=== PATIENT | female | born 1995 | race African-American/Black ===

== ENCOUNTER 2016-08-28 21:43 | Emergency (ER) | payer MEDICAID ==
[~2016-08-28] VITALS: Ht 172.7 cm; Wt 107.0 kg
[2016-08-28] MEDS ORDERED: TRAZODONE HCL100 MG ORAL (21:56)
[2016-08-28] MEDS ORDERED: DEPAKOTE250 MG PO (21:56)
[2016-08-28] MEDS ORDERED: KEFLEX500 MG ORAL (22:18)
[2016-08-28] MEDS ORDERED: IBUPROFEN600 MG ORAL (22:18)
[2016-08-28 22:27] VITALS: BP 130/82
--- NOTE | 2016-08-28 23:52 | Emergency Room Report ---
History of Present Illness General Chief Complaint: Skin Rash/Abscess Source: Patient Present Illness HPI Patient presents with complaints of redness and discomfort in the left axilla Ongoing for over the past 10 days Denies any fevers Denies any chills Patient reports that she was getting norco for the pain which was helping her Denies any discharge Denies any fall or trauma pain is 8/10 worse with touch Allergies: Coded Allergies: GUAIFENESIN (Verified Allergy, Unknown, 08/28/16) Patient History Past Medical History: see triage record Pertinent Family History: none Last Menstrual Period: 2013 Reviewed Nursing Documentation: PMH: Agreed, PSxH: Agreed Nursing Documentation-PMH History Of Psychiatric Problem: Yes - BIPOLAR,DEPRESSION Review of Systems All Other Systems: negative except mentioned in HPI Physical Exam Vital Signs Date Time Temp Pulse Resp B/P Pulse Ox O2 Delivery O2 Flow Rate FiO2 08/28/16 21:49 98.2 82 18 105/66 96 Room Air Sp02 EP Interpretation: reviewed, normal General Appearance: well appearing, no apparent distress Head: normocephalic, atraumatic Eyes: bilateral eye EOMI, bilateral eye PERRL ENT: hearing grossly normal, normal pharynx Neck: full range of motion, supple Respiratory: lungs clear, normal breath sounds Cardiovascular #1: regular rate, rhythm Musculoskeletal: normal inspection Neurologic: alert, oriented x3, responsive Skin: other - Small area of what appears to be likely folliculitis the left mid axilla, approximately 1 x 1 cm, no obvious fluctuance, does not appear to be a lymph node Medical Decision Making Diagnostic Impression: Primary Impression: folliculitis ER Course The area in question at this time appears fairly early, no obvious abscess Patient will be treated conservatively with oral antibiotics Last Vital Signs Date Time Temp Pulse Resp B/P Pulse Ox O2 Delivery O2 Flow Rate FiO2 08/28/16 22:27 77 16 130/82 98 Room Air 08/28/16 22:27 98.0 Status: unchanged Disposition: HOME, SELF-CARE Condition: Stable Scripts Ibuprofen* (MOTRIN*) 600 Mg Tablet 600 MG ORAL Q8H Y for For Pain, #20 TAB 0 Refills Prov: KEYSHA MESSINA.Kristyn 08/28/16 Cephalexin* (KEFLEX*) 500 Mg Capsule 500 MG ORAL Q6H, #28 CAP 0 Refills Prov: KEYSHA MESSINA D.O. 08/28/16 Referrals: NOT CHOSEN IPA/MD,REFERRING (PCP) Patient Instructions: Folliculitis Additional Instructions: Patient is provided with the discharge instructions notified to follow up with primary doctor in the next 2-3 days otherwise return to the er with any worsening symptoms. Please note that this report is being documented using DRAGON technology. This can lead to erroneous entry secondary to incorrect interpretation by the dictating instrument. KEYSHA MESSINA D.O. Aug 28, 2016 23:52
== END 2016-08-28 22:31 | disposition home or self-care (01) ==
LOC: EMR 22:30
DX: L73.9 Follicular disorder, unspecified (principal); L02.818 Cutaneous abscess of other sites
CPT/HCPCS: 99284

== ENCOUNTER 2016-09-03 19:22 | Emergency (ER) | payer MEDICAID ==
[~2016-09-03] VITALS: Ht 170.2 cm; Wt 108.9 kg
[~2016-09-03 19:22] MED LIST: DEPAKOTE250 MG PO; IBUPROFEN600 MG ORAL; KEFLEX500 MG ORAL; TRAZODONE HCL100 MG ORAL
[2016-09-03 20:08] LABS: APPEARANCE,URINE CLEAR; KETONES,URINE NEGATIVE (NEGATIVE); LEUKOCYTE ESTERASE ,URINE 3+ (NEGATIVE); NITRITE,URINE NEGATIVE (NEGATIVE); PH,URINE 5 (4.5-8.0); PROTEIN,URINE NEGATIVE (NEGATIVE); UROBILINOGEN,URINE NORMAL MG/DL (0.0-1.0)
[2016-09-03 20:10] VITALS: BP 101/59
[2016-09-03 20:13] LABS: BASOPHILS % (AUTO) 1.4 % (0.0-2.0); EOSINOPHILS % (AUTO) 6.5 % (0.0-3.0); LYMPHOCYTES % (AUTO) 39.9 % (20.0-45.0); MEAN CORPUSCULAR HEMOGLOBIN 30.9 PG (27.0-31.0); MEAN CORPUSCULAR HGB CONC 33.3 G/DL (32.0-36.0); MEAN CORPUSCULAR VOLUME 93 FL (80-99); MEAN PLATELET VOLUME 5.9 FL (6.5-10.1); MONOCYTES % (AUTO) 7.8 % (1.0-10.0); NEUTROPHILS % (AUTO) 44.4 % (45.0-75.0); PLATELET COUNT 296 K/UL (150-450); RED BLOOD COUNT 4.05 M/UL (4.20-5.40); RED CELL DISTRIBUTION WIDTH 11.4 % (11.6-14.8); WHITE BLOOD COUNT 6.2 K/UL (4.8-10.8)
[2016-09-03 20:20] LABS: PROTHROMBIN TIME 10.2 SEC (9.30-11.50)
[2016-09-03 20:23] VITALS: BP 92/57
[2016-09-03 20:23] LABS: ALANINE AMINOTRANSFERASE 24 U/L (3-33); ALBUMIN/GLOBULIN RATIO 1.2 (1.0-2.7); ANION GAP 16 (5-15); ASPARTATE AMINO TRANSFERASE 19 U/L (5-40); CALCIUM 9.4 mg/dL (8.6-10.2); CARBON DIOXIDE 26 mEQ/L (20-30); CHLORIDE 97 mEQ/L (98-107); GLOMERULAR FILTRATION RATE > 60 mL/min (>60); HEMOLYSIS 3; LIPASE 31 U/L (< 60); POTASSIUM 3.9 mEQ/L (3.4-4.9); SODIUM 139 mEQ/L (135-145); TOTAL PROTEIN 7.5 g/dL (6.6-8.7); TROPONIN I < 0.30 ng/mL (<=0.30)
[2016-09-03 20:24] LABS: BACTERIA,URINE MODERATE /HPF; SQUAMOUS EPITHELIAL CELL,UR MANY /LPF (NONE/OCC); WBC,URINE 15-20 /HPF (0 - 2)
[2016-09-03 20:25] LABS: TRICHOMONAS,URINE FEW /HPF
[2016-09-03 20:27] VITALS: BP 101/59
[2016-09-03 20:28] VITALS: BP 93/66
[2016-09-03] MEDS ORDERED: cefTRIAXone 1 GM in NS 55 ML IVPB ONE (20:30)
[2016-09-03] MEDS ORDERED: KEFLEX500 MG ORAL (20:35)
[2016-09-03 21:43] VITALS: BP 100/65
[2016-09-03 22:00] VITALS: BP 100/65
--- NOTE | 2016-09-05 13:40 | Emergency Room Report ---
History of Present Illness General Chief Complaint: Seizure Source: Patient Present Illness HPI Patient is a 20-year-old female presented after having a possible seizure. Patient stated that she was playing with her phone and awoke with her phone in a different location from where she was. She denied any tongue pain. She had no recent fever. She had been having several episodes of nonbloody diarrhea. She denied any vomiting or severe headache at this time. Allergies: Coded Allergies: GUAIFENESIN (Verified Allergy, Unknown, 08/28/16) Patient History Past Medical History: see triage record Last Menstrual Period: 2013 Reviewed Nursing Documentation: PMH: Agreed, PSxH: Agreed Review of Systems All Other Systems: negative except mentioned in HPI Physical Exam Vital Signs Date Time Temp Pulse Resp B/P Pulse Ox O2 Delivery O2 Flow Rate FiO2 09/03/16 19:25 98.1 84 16 94/54 96 09/03/16 20:10 Room Air Sp02 EP Interpretation: reviewed, normal General Appearance: normal inspection, well appearing, no apparent distress, alert, GCS 15 Head: atraumatic ENT: normal ENT inspection, hearing grossly normal, normal voice Neck: normal inspection, full range of motion, supple, no bony tend Respiratory: normal inspection, lungs clear, normal breath sounds, no respiratory distress, no retraction, no wheezing Cardiovascular #1: regular rate, rhythm, no edema Gastrointestinal: normal inspection, normal bowel sounds, non tender, soft, no guarding, no hernia Genitourinary: no CVA tenderness Musculoskeletal: normal inspection, back normal, normal range of motion Neurologic: normal inspection, alert, oriented x3, responsive, excel vba developer III-XII nml as tested, speech normal Psychiatric: normal inspection, judgement/insight normal, mood/affect normal Skin: normal inspection, normal color, no rash Medical Decision Making Diagnostic Impression: Primary Impression: UTI (urinary tract infection) ER Course lDifferential diagnosis included but not limited to syncope versus seizure. Potential causes for syncope included arrhythmia, dehydration, acute coronary syndrome, severe anemia, pulmonary embolus. Patient had a normal white blood count was normal hemoglobin. The patient does not appear to have any secondary signs of seizure. Patient was given IV fluids. The patient improvement in her blood pressure. Patient was noted to have some evidence of urinary tract infection was given IV antibiotics. The patient is advised to follow up with primary care doctor in 1 -2 days. Patient presents some evidence of urinary tract infection was started on oral antibiotics. Patient is advised to return if any worsening condition or if any changes in status that are concerning. Last Vital Signs Date Time Temp Pulse Resp B/P Pulse Ox O2 Delivery O2 Flow Rate FiO2 09/03/16 22:00 97.9 71 14 100/65 100 Room Air Status: improved Disposition: HOME, SELF-CARE Condition: Stable Scripts Cephalexin* (KEFLEX*) 500 Mg Capsule 500 MG ORAL Q6H, #28 CAP 0 Refills Prov: Héctor Mccord 09/03/16 Referrals: NOT CHOSEN [facility]/,REFERRING (PCP) Patient Instructions: Acute Urinary Retention, Female, [id number] Héctor Mccord Sep 05, 2016 13:40
== END 2016-09-03 22:00 | disposition home or self-care (01) ==
LOC: EMR 21:55
DX: N39.0 Urinary tract infection, site not specified (principal)
CPT/HCPCS: 36415; 80053; 81003; 81025; 83690; 84484; 85025; 85610; 85730; 87086; 93005; 96360; 96374; 96375; 99284; J0696; J2405

== ENCOUNTER 2017-03-13 02:48 | Emergency (ER) | payer MEDICAID, OTHER ==
[~2017-03-13] VITALS: Ht 165.1 cm; Wt 81.6 kg
[2017-03-13 03:00] VITALS: BP 106/74
[2017-03-13] MEDS ORDERED: Depakote 500mg tab ORAL ONE (03:00)
[2017-03-13 03:43] LABS: BASOPHILS % (AUTO) 1.6 % (0.0-2.0); EOSINOPHILS % (AUTO) 8.1 % (0.0-3.0); LYMPHOCYTES % (AUTO) 34.6 % (20.0-45.0); MEAN CORPUSCULAR HGB CONC 33.6 G/DL (32.0-36.0); MEAN CORPUSCULAR VOLUME 95 FL (80-99); MEAN PLATELET VOLUME 6.1 FL (6.5-10.1); MONOCYTES % (AUTO) 7.2 % (1.0-10.0); NEUTROPHILS % (AUTO) 48.4 % (45.0-75.0); PLATELET COUNT 257 K/UL (150-450); RED BLOOD COUNT 3.86 M/UL (4.20-5.40); RED CELL DISTRIBUTION WIDTH 12.1 % (11.6-14.8); WHITE BLOOD COUNT 7.9 K/UL (4.8-10.8)
[2017-03-13 03:51] LABS: APPEARANCE,URINE CLEAR; KETONES,URINE NEGATIVE (NEGATIVE); LEUKOCYTE ESTERASE ,URINE 1+ (NEGATIVE); NITRITE,URINE NEGATIVE (NEGATIVE); PH,URINE 6 (4.5-8.0); PROTEIN,URINE NEGATIVE (NEGATIVE); UROBILINOGEN,URINE NORMAL MG/DL (0.0-1.0)
[2017-03-13 03:59] LABS: SQUAMOUS EPITHELIAL CELL,UR MODERATE /LPF (NONE/OCC)
[2017-03-13 04:00] LABS: BACTERIA,URINE FEW /HPF
[2017-03-13 04:01] LABS: ACETAMINOPHEN < 10 ug/mL (10-30); ALANINE AMINOTRANSFERASE 19 U/L (3-33); ALBUMIN/GLOBULIN RATIO 1.3 (1.0-2.7); ALCOHOL < 10 mg/dL; ANION GAP 12 (5-15); ASPARTATE AMINO TRANSFERASE 20 U/L (5-40); CARBON DIOXIDE 25 mEQ/L (20-30); CHLORIDE 104 mEQ/L (98-107); CREATININE 1.2 mg/dL (0.5-0.9); GLOMERULAR FILTRATION RATE > 60 mL/min (>60); HEMOLYSIS 11; POTASSIUM 3.7 mEQ/L (3.4-4.9); SODIUM 141 mEQ/L (135-145); TOTAL PROTEIN 6.7 g/dL (6.6-8.7); VALPROIC ACID < 3 ug/mL (50-100)
[2017-03-13 05:00] VITALS: BP 106/74
--- NOTE | 2017-03-13 05:34 | Emergency Room Report ---
History of Present Illness General Chief Complaint: Behavioral Complaint Source: Patient (Ntiin Mejia M.D.) Present Illness HPI The patient presents with suicidal ideation. She's has thoughts about running into traffic. She's been off her psychiatric medication for 3 weeks. She just changed living situations. She now on the streets. She denies doing any drugs. She states has been many years and she was last hospitalized. The last seizure the patient had was 2 weeks ago. She supposed be on valproic acid. She's had dysuria. No discharge. She denies any nausea, vomiting, diarrhea, rashes, headache or muscle aches. (Nitin Mejia M.D.) Allergies: Coded Allergies: GUAIFENESIN (Verified Allergy, Unknown, 08/28/16) Patient History Past Medical History: see triage record Social History: Denies: smoking, alcohol use, drug use Social History Narrative on streets Last Menstrual Period: had hysterectomy, 2013 last period Reviewed Nursing Documentation: PMH: Agreed, PSxH: Agreed (Nitin Mejia M.D.) Nursing Documentation-PMH Hx Hypertension: Yes Hx Asthma: Yes Hx Seizures: Yes (Nitin Mejia M.D.) Review of Systems All Other Systems: negative except mentioned in HPI (Nitin Mejia M.D.) Physical Exam Vital Signs Date Time Temp Pulse Resp B/P (MAP) Pulse Ox O2 Delivery O2 Flow Rate FiO2 03/13/17 02:49 98.6 80 16 106/74 98 Room Air Sp02 EP Interpretation: reviewed, normal General Appearance: well appearing, no apparent distress, GCS 15 Head: normocephalic Eyes: bilateral eye PERRL, bilateral eye Scleral Injection ENT: moist mucus membranes Neck: supple Respiratory: lungs clear, normal breath sounds Cardiovascular #1: regular rate, rhythm Cardiovascular #2: 2+ radial (R) Gastrointestinal: normal inspection, normal bowel sounds, non tender, no mass, non-distended Musculoskeletal: back normal, gait/station normal, normal range of motion Neurologic: alert, oriented x3 Psychiatric: mood/affect normal Suicide Risk Assessment: Suicidal Ideation: Yes Had intent to initiate attempt: Yes Pt's plan for suicide attempt: Yes Has means to complete attempt: Yes Skin: normal inspection, warm/dry (Nitin Mejia M.D.) Medical Decision Making Diagnostic Impression: Primary Impression: Noncompliance Additional Impression: UTI (urinary tract infection) Qualified Codes: N30.00 - Acute cystitis without hematuria ER Course The patient presents with noncompliance and suicidal ideation. Differential includes exacerbation of schizoaffective, major depression, diabetes or electrolyte abnormality amongst others. The patient will be evaluated with laboratory and treated with her medications. In addition to that she be reevaluated in the morning she still suicidal she'll need to have a psychiatric evaluation. Labs are significant for no Depakote and negative tox screen. UA suggests UTI. Antibiotics were given. Medications given and somewhat improved. Still states some SI. Patient signed out to Dr. Messina pending psychiatric evaluation. Laboratory Tests Test 03/13/17 03:23 White Blood Count 7.9 K/UL (4.8-10.8) Red Blood Count 3.86 M/UL (4.20-5.40) L Hemoglobin 12.4 G/DL (12.0-16.0) Hematocrit 36.8 % (37.0-47.0) L Mean Corpuscular Volume 95 FL (80-99) Mean Corpuscular Hemoglobin 32.0 PG (27.0-31.0) H Mean Corpuscular Hemoglobin Concent 33.6 G/DL (32.0-36.0) Red Cell Distribution Width 12.1 % (11.6-14.8) Platelet Count 257 K/UL (150-450) Mean Platelet Volume 6.1 FL (6.5-10.1) L Neutrophils (%) (Auto) 48.4 % (45.0-75.0) Lymphocytes (%) (Auto) 34.6 % (20.0-45.0) Monocytes (%) (Auto) 7.2 % (1.0-10.0) Eosinophils (%) (Auto) 8.1 % (0.0-3.0) H Basophils (%) (Auto) 1.6 % (0.0-2.0) Urine Color Pale yellow Urine Appearance Clear Urine pH 6 (4.5-8.0) Urine Specific [place] 1.020 (1.005-1.035) Urine Protein Negative (NEGATIVE) Urine Glucose (UA) Negative (NEGATIVE) Urine Ketones Negative (NEGATIVE) Urine Occult Blood 2+ (NEGATIVE) H Urine Nitrite Negative (NEGATIVE) Urine Bilirubin Negative (NEGATIVE) Urine Urobilinogen Normal MG/DL (0.0-1.0) Urine Leukocyte Esterase 1+ (NEGATIVE) H Urine RBC 2-4 /HPF (0 - 2) H Urine WBC 5-10 /HPF (0 - 2) H Urine Squamous Epithelial Cells Moderate /LPF (NONE/OCC) H Urine Bacteria Few /HPF (NONE) Urine HCG, Qualitative Negative Sodium Level 141 mEQ/L (135-145) Potassium Level 3.7 mEQ/L (3.4-4.9) Chloride Level 104 mEQ/L (98-107) Carbon Dioxide Level 25 mEQ/L (20-30) Anion Gap 12 (5-15) Blood Urea Nitrogen 10 mg/dL (7-23) Creatinine 1.2 mg/dL (0.5-0.9) H Estimate Glomerular Filtration Rate > 60 mL/min (>60) Glucose Level 99 mg/dL (74-106) Calcium Level 9.0 mg/dL (8.6-10.2) Total Bilirubin 0.3 mg/dL (0.0-1.2) Aspartate Amino Transferase (AST) 20 U/L (5-40) Alanine Aminotransferase (ALT) 19 U/L (3-33) Alkaline Phosphatase 96 U/L (35-104) Total Creatine Kinase 488 U/L (26-140) H Total Protein 6.7 g/dL (6.6-8.7) Albumin 3.9 g/dL (3.5-5.2) Globulin 2.8 g/dL Albumin/Globulin Ratio 1.3 (1.0-2.7) Salicylates Level < 1 mg/dL (10-30) L Urine Opiates Screen Negative (NEGATIVE) Acetaminophen Level < 10 ug/mL (10-30) L Urine Barbiturates Screen Negative (NEGATIVE) Valproic Acid Level < 3 ug/mL (50-100) L Phencyclidine (PCP) Screen Negative (NEGATIVE) Urine Amphetamines Screen Negative (NEGATIVE) Urine Benzodiazepines Screen Negative (NEGATIVE) Urine Cocaine Screen Negative (NEGATIVE) Urine Marijuana (THC) Screen Negative (NEGATIVE) Serum Alcohol < 10 mg/dL (Nitin Mejia M.D.) ER Course Please refer to initial note for initial history presentation At this time patient had continued to deny any homicidal or suicidal ideations Patient however was evaluated by psychiatric care At this time patient has been cleared through that service Looking at the laboratory patient did have evidence of possible UTI Therefore placed on oral antibiotics And has been cleared for discharge (KEYSHA MESSINA D.O.) Last Vital Signs Date Time Temp Pulse Resp B/P (MAP) Pulse Ox O2 Delivery O2 Flow Rate FiO2 03/13/17 14:25 78 16 140/90 98 Room Air 03/13/17 11:05 97.8 Status: improved (Nitin Mejia M.D.) Status: improved (KEYSHA MESSINA D.O.) Disposition: HOME, SELF-CARE Condition: Improved Scripts Trimethoprim/Sulfamethoxazole 160/800* (BACTRIM DS TABLET*) 1 Each Tablet 1 TAB ORAL Q12H, #14 TAB 0 Refills Prov: KEYSHA MESSINA D.O. 03/13/17 Referrals: PREFERRED [facility],REFERRING (PCP) Additional Instructions: Patient is provided with the discharge instructions notified to follow up with primary doctor in the next 2-3 days otherwise return to the er with any worsening symptoms. Please note that this report is being documented using [employer] technology. This can lead to erroneous entry secondary to incorrect interpretation by the dictating instrument. Nitin Mejia M.D. Mar 13, 2017 05:34 KEYSHA MESSINA D.O. Mar 13, 2017 13:47
[2017-03-13 07:00] VITALS: BP 112/80
[2017-03-13 09:00] VITALS: BP 106/80
--- NOTE | 2017-03-13 09:55 | Consultation ---
History of Present Illness General Chief Complaint: Behavioral Complaint Present Illness HPI 21 yo with hx of bipolar d/o who came to the hospital with suicidal ideation, she initially stated/ see my dictation please. Allergies: Coded Allergies: GUAIFENESIN (Verified Allergy, Unknown, 08/28/16) Medication History Scheduled Cephalexin* (Keflex*), 500 MG ORAL Q6H Divalproex Sodium* (Depakote*), 250 MG PO Q12HR, (Reported) Trazodone Hcl* (Desyrel*), 100 MG ORAL BEDTIME, (Reported) Scheduled PRN Ibuprofen* (Motrin*), 600 MG ORAL Q8H PRN for For Pain Patient History Healthcare decision maker Resuscitation status Advanced Directive on File Physical Exam Last 24 Hour Vital Signs Date Time Temp Pulse Resp B/P (MAP) Pulse Ox O2 Delivery O2 Flow Rate FiO2 03/13/17 09:00 98.2 77 20 106/80 99 Room Air 03/13/17 07:00 98.6 72 18 112/80 99 Room Air 03/13/17 05:00 98.6 78 18 106/74 98 Room Air 03/13/17 04:28 98.6 03/13/17 03:00 98.6 80 16 106/74 98 Room Air 03/13/17 02:49 98.6 80 16 106/74 98 Room Air Laboratory Tests Test 03/13/17 03:23 White Blood Count 7.9 K/UL (4.8-10.8) Red Blood Count 3.86 M/UL (4.20-5.40) L Hemoglobin 12.4 G/DL (12.0-16.0) Hematocrit 36.8 % (37.0-47.0) L Mean Corpuscular Volume 95 FL (80-99) Mean Corpuscular Hemoglobin 32.0 PG (27.0-31.0) H Mean Corpuscular Hemoglobin Concent 33.6 G/DL (32.0-36.0) Red Cell Distribution Width 12.1 % (11.6-14.8) Platelet Count 257 K/UL (150-450) Mean Platelet Volume 6.1 FL (6.5-10.1) L Neutrophils (%) (Auto) 48.4 % (45.0-75.0) Lymphocytes (%) (Auto) 34.6 % (20.0-45.0) Monocytes (%) (Auto) 7.2 % (1.0-10.0) Eosinophils (%) (Auto) 8.1 % (0.0-3.0) H Basophils (%) (Auto) 1.6 % (0.0-2.0) Urine Color Pale yellow Urine Appearance Clear Urine pH 6 (4.5-8.0) Urine Specific [place] 1.020 (1.005-1.035) Urine Protein Negative (NEGATIVE) Urine Glucose (UA) Negative (NEGATIVE) Urine Ketones Negative (NEGATIVE) Urine Occult Blood 2+ (NEGATIVE) H Urine Nitrite Negative (NEGATIVE) Urine Bilirubin Negative (NEGATIVE) Urine Urobilinogen Normal MG/DL (0.0-1.0) Urine Leukocyte Esterase 1+ (NEGATIVE) H Urine RBC 2-4 /HPF (0 - 2) H Urine WBC 5-10 /HPF (0 - 2) H Urine Squamous Epithelial Cells Moderate /LPF (NONE/OCC) H Urine Bacteria Few /HPF (NONE) Urine HCG, Qualitative Negative Sodium Level 141 mEQ/L (135-145) Potassium Level 3.7 mEQ/L (3.4-4.9) Chloride Level 104 mEQ/L (98-107) Carbon Dioxide Level 25 mEQ/L (20-30) Anion Gap 12 (5-15) Blood Urea Nitrogen 10 mg/dL (7-23) Creatinine 1.2 mg/dL (0.5-0.9) H Estimat Glomerular Filtration Rate > 60 mL/min (>60) Glucose Level 99 mg/dL (74-106) Calcium Level 9.0 mg/dL (8.6-10.2) Total Bilirubin 0.3 mg/dL (0.0-1.2) Aspartate Amino Transf (AST/SGOT) 20 U/L (5-40) Alanine Aminotransferase (ALT/SGPT) 19 U/L (3-33) Alkaline Phosphatase 96 U/L (35-104) Total Creatine Kinase 488 U/L (26-140) H Total Protein 6.7 g/dL (6.6-8.7) Albumin 3.9 g/dL (3.5-5.2) Globulin 2.8 g/dL Albumin/Globulin Ratio 1.3 (1.0-2.7) Salicylates Level < 1 mg/dL (10-30) L Urine Opiates Screen Negative (NEGATIVE) Acetaminophen Level < 10 ug/mL (10-30) L Urine Barbiturates Screen Negative (NEGATIVE) Valproic Acid (Depakene) Level < 3 ug/mL (50-100) L Phencyclidine (PCP) Screen Negative (NEGATIVE) Urine Amphetamines Screen Negative (NEGATIVE) Urine Benzodiazepines Screen Negative (NEGATIVE) Urine Cocaine Screen Negative (NEGATIVE) Urine Marijuana (THC) Screen Negative (NEGATIVE) Serum Alcohol < 10 mg/dL Height (Feet): 5 Height (Inches): 5.00 Weight (Pounds): 180 Medications Current Medications Medications (Trade) Dose Ordered Sig/Sudha Route PRN Reason Start Time Stop Time Status Last Admin Dose Admin Aripiprazole (Abilify) 10 mg BID ORAL 03/13/17 09:00 04/12/17 08:59 03/13/17 09:00 Nitrofurantoin (Macrobid) 100 mg BID ORAL 03/13/17 09:00 04/12/17 08:59 03/13/17 09:00 Valproic Acid (Depakene) 500 mg TID ORAL 03/13/17 09:00 04/12/17 08:59 03/13/17 09:00 Shayy Up M.D. Mar 13, 2017 09:55
[2017-03-13] MEDS ORDERED: Haloperidol Decanoate 50mg Inj IM ONE (10:30)
[2017-03-13 11:05] VITALS: BP 117/85
[2017-03-13] MEDS ORDERED: BACTRIM DS TAB1 EAC1 ORAL (13:45)
[2017-03-13 14:25] VITALS: BP 140/90
--- NOTE | 2017-03-13 22:15 | Consultation ---
DATE OF CONSULTATION: 03/13/2017 History Of Present Illness: The patient is a 21-year-old patient with a history of self-reported bipolar disorder. The patient has been off her medications for a month. She states she forgot to take her medication. She is on Depakote and trazodone. The patient came in with a chief complaint of suicidal ideation. The patient stated that she has been feeling suicidal as her daughter in June 2016 and she has been excessively more depressed. She stated her daughter was 2 years ago when she , had a brain tumor. She has visited our ER in August 2 times for possible seizure and received treatment as well as for pain [place]. In those meetings or visits, she never expressed that she is having bipolar disorder nor her daughter . During the stay in the hospital, the patient has been observed eating her food tray, asking for more food, and being very hungry. During the evaluation, she stated that she is not suicidal if we find her [facility]. The patient then stated that she would like to be transferred to [place]. She only wants to go to [place]. She was not observed having any auditory hallucinations or delusions. She denied using any drugs. She stated that she spent all her money on buying the tent since she is homeless. She is from [place], then she stated she wants a ticket to [place] since her family as well as her child's father live in [place]. The patient is connected with [facility]. She has a psychiatrist over there. She stated she is seeing her psychiatrist on 03/29/2017. Past Medical History: Significant for obesity and urinary tract infection. ALLERGIES: Guaifenesin. Substance Abuse History: She denied any history of illicit drug use or alcohol. Mental Status Examination: The patient is alert and oriented times self, place, and situation. Mood is dysphoric. Affect is constricted. Congruent with mood. Thought process is concrete. Thought content, no auditory or visual hallucinations. She stated that she is still suicidal, has no intention to end her life. ASSESSMENT: [place] I Bipolar disorder by history. [place] II Deferred. [place] III As above. [place] IV Moderate. [place] V 50. Plan: The patient was given Depakote as well as Abilify in the ER. She also received a Haldol Decanoate shot. The patient will be given a referral to [facility]. She is not an imminent danger to self or others. She has future oriented thought process and she will be discharged and follow up with her psychiatrist at [facility]. We will continue to follow and readjust the medication. Shayy Up M.D. DR: JAYDEN JOB#: [id number] CC:
== END 2017-03-13 14:29 | disposition home or self-care (01) ==
LOC: EDBD 02:48 → EDUNIT# 02:48 → EMR 02:59
DX: R45.851 Suicidal ideations (principal); N39.0 Urinary tract infection, site not specified; Z91.19 Patient's noncompliance with other medical treatment and regimen; I10 Essential (primary) hypertension; J45.909 Unspecified asthma, uncomplicated; G40.909 Epilepsy, unspecified, not intractable, without status epilepticus
CPT/HCPCS: 36415; 80053; 80164; 80300; 81003; 81025; 82550; 85025; 96372; 99284; G0480; J1631; 80329